=== PATIENT | male | born 1965 | race Caucasian/White ===

== ENCOUNTER 2022-12-25 15:07 | Emergency (ER) | payer OTHER ==
[2022-12-25] MEDS ORDERED: diphenhydrAMINE INJ 50 MG/ML VIAL IVP STA (16:17)
[2022-12-25] MEDS ORDERED: METOCLOPRAMIDE 10 MG/2 ML VIAL IVP STA (16:17)
[2022-12-25] MEDS ORDERED: KETOROLAC 15 MG/ML VIAL IVP STA (16:17)
[2022-12-25] MEDS ORDERED: SODIUM CHLORIDE 0.9% 1,000 ML IV STA (16:17)
--- NOTE | 2022-12-25 17:31 | CT Report ---
PROCEDURE: HEAD WO INDICATIONS: RIGHT-SIDE HEADACHE, NEW PATTERN TECHNIQUE: Noncontrast 4.5 mm thick angled axial sections acquired from the foramen magnum to the vertex. For r adiation dose reduction, the following was used: automated exposure control, adjustment of mA and/or kV according to patient size. COMPARISON: None. FINDINGS: Image quality: Excellent. CSF spaces: Basal cisterns are patent. No extra-axial fluid collections. Ventricles are normal in size and shape. Brain: No midline shift. No intracranial masses or hemorrhage. Roper-white matter interface is norm al. Bilateral basal ganglial calcifications. Skull and face: Calvarium and visualized facial bones are intact, without suspicious lesions. Sinuses: Complete opacification of the left maxillary sinus. The other visualized sinuses and mastoid s are clear. IMPRESSION: No acute intracranial pathology. Left maxillary sinus disease. Reviewed by: Ronnie Marshall MD on 12/25/2022 5:30 PM PDT Approved by: Ronnie Marshall MD on 12/25/2022 5:30 PM PDT Station ID: [id number]
[2022-12-25 17:33] VITALS: O2SAT 100
--- NOTE | 2022-12-25 17:44 | ED Physician Documentation ---
PD HPI HEADACHE - Stated complaint Stated Complaint: SAMSON,NAUSEA - Chief complaint Chief Complaint: Neuro - History obtained from History obtained from: Patient - Additional information Additional information: 57-year-old male with no significant past medical history presents by private vehicle from home for 3 days of right-sided parietal stabbing headache. Patient noticed the pain when he woke up from sleep. He has never had a headache like this before. No medications taken until today, he took an Excedrin several hours prior to arrival, it did not improve his pain. He states that when he was picking up the Excedrin the pharmacist told him that his headache could be a sign of an impending stroke and he should be evaluated in the emergency department. Patient denies vision changes, neck stiffness, chest pain, numbness, weakness, tingling, any other complaints at this time. Also endorsing mild nausea from the pain in his head. Review of Systems Constitutional: denies: Fever, Chills GI: reports: Nausea. denies: Abdominal Pain, Vomiting : denies: Dysuria, Frequency, Hesitancy Musculoskeletal: denies: Neck pain, Back pain, Extremity pain Neurologic: reports: Headache. denies: Generalized weakness, Focal weakness, Numbness PD PAST MEDICAL HISTORY - Past Medical History Past Medical History: Yes Neuro: Head injury, Headaches - Past Surgical History Past Surgical History: No - Present Medications Home Medications: Ambulatory Orders Medication Instructions Recorded Confirmed No Known Home Medications 12/25/22 12/25/22 - Allergies Allergies/Adverse Reactions: Allergies Allergy/AdvReac Type Severity Reaction Status Date / Time No Known Drug Allergies Allergy Verified 12/25/22 15:27 - Social History Does the pt smoke?: No Smoking Status: Never smoker Does the pt drink ETOH?: No Does the pt have substance abuse?: Yes - Immunizations Immunizations are current?: Yes - POLST Patient has POLST: No PD ED PE NORMAL - Vitals Vital signs reviewed: Yes - General General: Alert and oriented X 3, No acute distress, Well developed/nourished - HEENT HEENT: Atraumatic - Neck Neck: Supple, no meningeal sign - Cardiac Cardiac: RRR, Strong equal pulses - Respiratory Respiratory: No respiratory distress, Clear bilaterally - Abdomen Abdomen: Soft, Non tender, Non distended - Derm Derm: Normal color, Warm and dry, No rash - Extremities Extremities: No deformity, No tenderness to palpate, Normal ROM s pain - Neuro Neuro: Alert and oriented X 3, 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 No focal neurologic deficit. Patient only took 1 dose of Excedrin at home prior to arrival. Since this is a new pattern headache for the patient will order CT scan of the brain. Will order headache cocktail. CT scan shows no acute abnormalities. Headache cocktail has resolved patient's symptoms, he is resting comfortably in ED bed. Patient was advised to take Tylenol Motrin as needed at home for pain, encouraged to drink plenty of fluids. He was advised to follow-up with his primary care physician, especially if he starts noticing more frequent headaches. Departure - Departure Disposition: 01 Home, Self Care Clinical Impression: Headache Qualifiers: Headache type: unspecified Headache chronicity pattern: acute headache Intractability: not intractable Qualified Code(s): R51.9 - Headache, unspecified Condition: Stable Instructions: ED Headache Migraine Comments: Your CT scan today was normal. I recommend taking Tylenol and Motrin at home if you have recurrence of your headache. Follow-up with your primary care ph ysician. Forms: PCP List Discharge Date/Time: 12/25/22 17:53
[2022-12-25 17:51] VITALS: BP 137/81
== END 2022-12-25 17:53 | disposition home or self-care (01) ==
LOC: ED 15:07
DX: R51.9 Headache, unspecified (principal)
CPT/HCPCS: 70450; 96374; 96375; 99283; 99284; J1200; J2765

== ENCOUNTER 2023-03-02 14:25 | Emergency (ER) | payer OTHER ==
[2023-03-02] MEDS ORDERED: methocarbamoL 500 MG TABLET PO STA (16:22)
[2023-03-02] MEDS ORDERED: dexAMETHasone 4 MG TABLET PO STA (16:22)
[2023-03-02] MEDS ORDERED: KETOROLAC 30 MG/ML VIAL IM STA (16:22)
--- NOTE | 2023-03-02 16:33 | ED Physician Documentation ---
PD HPI BACK PAIN - Stated complaint Stated Complaint: L LEG PX - Chief complaint Chief Complaint: Back Pain - History obtained from History obtained from: Patient - History of Present Illness Timing - onset: How many days ago Timing - duration: Days Timing - details: Gradual onset, Still present Location: Lower, Right, Left Quality: Pain, Spasm, Aching, Similar to prior episodes Associated symptoms: No: Fever, Weakness, Numbness, Incontinent of urine Improves with: Rest Worsened by: Movement Contributing factors: Twisting. No: Trauma Review of Systems Constitutional: denies: Fever, Chills Skin: denies: Rash, Lesions Neurologic: denies: Focal weakness, Numbness PD PAST MEDICAL HISTORY - Past Medical History Past Medical History: Yes Cardiovascular: None Respiratory: Asthma, COPD Neuro: Head injury, Headaches Endocrine/Autoimmune: None GI: None : None HEENT: None Psych: None Musculoskeletal: Chronic back pain Derm: None - Past Surgical History Past Surgical History: Yes General: Appendectomy Ortho: Carpal Tunnel surgery, Other - Present Medications Home Medications: Ambulatory Orders Medication Instructions Recorded Confirmed HYDROcod/ACETAM 5/325 [[place] 5/325] 1 ea PO Q6H PRN #15 tablet 03/02/23 HYDROcodone/ACET 7.5/325 [[place] 1 each PO Q6H PRN #15 tablet 03/02/23 7.5/325] Meloxicam [Mobic] 7.5 mg PO BID 10 Days #30 tablet 03/02/23 dexAMETHasone [Decadron] 4 mg PO DAILY #5 tablet 03/02/23 methocarbamoL [Robaxin] 500 mg PO Q6H PRN #10 tablet 03/02/23 methocarbamoL [Robaxin] 500 mg PO Q6H PRN #30 tablet 03/02/23 - Allergies Allergies/Adverse Reactions: Allergies Allergy/AdvReac Type Severity Reaction Status Date / Time No Known Drug Allergies Allergy Verified 03/02/23 14:32 - Social History Does the pt smoke?: No Smoking Status: Former smoker Does the pt drink ETOH?: Yes Does the pt have substance abuse?: No - Immunizations Immunizations are current?: Yes - POLST Patient has POLST: No PD ED PE NORMAL - Vitals Vital signs reviewed: Yes - General General: Alert and oriented X 3, No acute distress (prefers standing. ), Well developed/nourished - Abdomen Abdomen: Soft, Non tender - Back Back: No CVA TTP - Derm Derm: Normal color, Warm and dry, No rash - Neuro Neuro: Alert and oriented X 3, No motor deficit, No sensory deficit, Normal speech Results - Vitals Vitals: Oxygen O2 Source Room air PD Medical Decision Making - ED course Complexity details: considered differential (has had back pain for awhile with flares at times. No red flags otherwise with currrent symptoms. Can give usual combination of anti-inflammatories, muscle relaxants, psain meds. ), d/w patient Departure - Departure Disposition: Home, Self Care Clinical Impression: Sciatica, Exacerbation of chronic back pain Condition: Stable Record reviewed to determine appropriate education?: Yes Instructions: ED Sciatica Follow-Up: [facility] [Provider Group] Prescriptions: dexAMETHasone [Decadron] 4 mg PO DAILY #5 tablet Meloxicam [Mobic] 7.5 mg PO BID 10 Days #30 tablet HYDROcod/ACETAM 5/325 [[place] 5/325] 1 ea PO Q6H PRN #15 tablet PRN Reason: Pain HYDROcodone/ACET 7.5/325 [[place] 7.5/325] 1 each PO Q6H PRN #15 tablet PRN Reason: Pain 5-7 methocarbamoL [Robaxin] 500 mg PO Q6H PRN #10 tablet PRN Reason: Spasms methocarbamoL [Robaxin] 500 mg PO Q6H PRN #30 tablet PRN Reason: Spasms Comments: In the short-term I would suggest using steroid and anti-inflammatories of dexamethasone daily for the next 5 days or so. Add methocarbamol muscle re laxant 3 times daily for stiffness and spasms. Heat and gentle stretching massage or chiropractic are all good. Add Tylenol 500 to 650 mg 4 times daily for pain if needed. You could add hydrocodone/acetaminophen if needed for worse pain. I sent these prescriptions to [facility] pharmacy in [place] so that they would be available for you this evening. They should be open till 6 PM today. Subsequently I would change to a nonsteroidal anti-inflammatory and still continue with muscle accident if needed. Still continue with Tylenol every 4-6 hours if needed for added pain. I sent prescriptions for these to [facility] in [place]. I am prescribing a short course of narcotic pain medication for you. These are potentially dangerous and addictive medications that should be used carefully. These medications may constipate you. Take an [id number] stool softener such as docusate twice daily with plenty of water while taking these medications. If you go 24 hours without a bowel movement, take [id number] MiraLAX, per package instructions. Do not drink or drive while taking these medications. If you received narcotic or sedating medications while in the emergency depar tment do not drive for 24 hours. Store this medication in a safe, secure place and out of reach of children. It is a violation of federal law to give or sell this medication to another person or to use in a manner other than prescribed. The ED will not refill narcotic prescriptions, including prescriptions lost or stolen. You can dispose of unwanted medications at the [facility]'s office or at several pharmacies such as [facility]. Discharge Date/Time: 03/02/23 16:51
[2023-03-02 16:47] VITALS: BP 154/9; O2SAT 97
== END 2023-03-02 16:51 | disposition home or self-care (01) ==
LOC: ED 14:25
DX: M54.42 Lumbago with sciatica, left side (principal); M54.41 Lumbago with sciatica, right side; G89.29 Other chronic pain; Z87.891 Personal history of nicotine dependence
CPT/HCPCS: 96374; 99283; 99284; A9270; J8540

== ENCOUNTER 2023-03-29 13:36 | Emergency (ER) | payer OTHER ==
--- NOTE | 2023-03-29 15:36 | ED Physician Documentation ---
History of Present Illness - Stated complaint Stated Complaint: PX RT SIDE - Chief complaint Chief Complaint: Back Pain - History obtained from History obtained from: Patient - Additonal information Additional information: The patient comes to the emergency department chief complaint of right side pain that started few days back. 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 He has had issues with his back before and was seen for sciatica a few weeks ago. He states that this pain, however, starts just inferior to the lower portion of the scapula on the right and wraps around to his flank. He denies any hematuria or dysuria. He states that he Has no history of kidney stones. No gallbladder issues that he knows of. He has not had a cough or fevers or any shortness of breath. States he is otherwise fairly healthy. 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 No other complaints at this time. PD PAST MEDICAL HISTORY - Past Medical History Cardiovascular: None Respiratory: Asthma, COPD Neuro: Head injury, Headaches Endocrine/Autoimmune: None GI: None : None HEENT: None Psych: None Musculoskeletal: Chronic back pain Derm: None - Past Surgical History Past Surgical History: No General: Appendectomy Ortho: Carpal Tunnel surgery, Other - Present Medications Home Medications: Ambulatory Orders Medication Instructions Recorded Confirmed HYDROcod/ACETAM 5/325 [[place] 5/325] 1 ea PO Q6H PRN #15 tablet 03/02/23 HYDROcodone/ACET 7.5/325 [[place] 1 each PO Q6H PRN #15 tablet 03/02/23 7.5/325] Meloxicam [Mobic] 7.5 mg PO BID 10 Days #30 tablet 03/02/23 dexAMETHasone [Decadron] 4 mg PO DAILY #5 tablet 03/02/23 methocarbamoL [Robaxin] 500 mg PO Q6H PRN #10 tablet 03/02/23 methocarbamoL [Robaxin] 500 mg PO Q6H PRN #30 tablet 03/02/23 Cyclobenzaprine [Flexeril] 10 mg PO TID PRN #20 tablet 03/29/23 HYDROcod/ACETAM 5/325 [[place] 5/325] 1 - 2 tablet PO Q6H PRN #14 tablet 03/29/23 predniSONE [Deltasone] 10 mg PO [id number] #42 tab 03/29/23 - Allergies Allergies/Adverse Reactions: Allergies Allergy/AdvReac Type Severity Reaction Status Date / Time No Known Drug Allergies Allergy Verified 03/29/23 13:51 - Social History Does the pt smoke?: No Smoking Status: Never smoker Does the pt drink ETOH?: No Does the pt have substance abuse?: Yes - Immunizations Immunizations are current?: Yes - POLST Patient has POLST: No PD ED PE NORMAL - Vitals Vital signs reviewed: Yes - General General: Alert and oriented X 3, No acute distress, Well developed/nourished - HEENT HEENT: Atraumatic, PERRL, EOMI, Moist mucous membranes - Neck Neck: Supple, no meningeal sign - Cardiac Cardiac: RRR, No murmur, Strong equal pulses - Respiratory Respiratory: No respiratory distress, Clear bilaterally - Abdomen Abdomen: Soft, Non tender, Non distended - Back Back: No spinal TTP, Other (Mild right CVA tenderness.) - Derm Derm: Normal color, Warm and dry, No rash - Extremities Extremities: No deformity, No edema - Neuro Neuro: Alert and oriented X 3 - Psych Psych: Normal mood, Normal affect Results - Vitals Vitals: Oxygen O2 Source Room air - Labs Labs: Laboratory Tests 03/29/23 03/29/23 03/29/23 15:34 15:34 16:30 WBC 8.8 RBC 5.21 Hgb 15.9 Hct 45.5 MCV 87.3 MCH 30.5 MCHC 34.9 RDW 11.9 L Plt Count 257 MPV 9.2 Neut # (Auto) 5.2 Lymph # (Auto) 2.7 Harmon # (Auto) 0.6 Eos # (Auto) 0.2 Baso # (Auto) 0.1 Absolute Nucleated RBC 0.00 Nucleated RBC % 0.0 Sodium 138 Potassium 4.1 Chloride 106 Carbon Dioxide 25 Anion Gap 7.0 BUN 13 Creatinine 0.9 Estimated GFR (MDRD) 87 L Glucose 90 Calcium 9.9 Total Bilirubin 0.9 AST 41 ALT 90 H Alkaline Phosphatase 82 Total Protein 7.2 Albumin 4.5 Globulin 2.7 Albumin/Globulin Ratio 1.7 Lipase 23 Urine Color YELLOW Urine Clarity CLEAR Urine pH 7.0 Ur Specific [place] 1.010 Urine Protein NEGATIVE Urine Glucose (UA) NEGATIVE Urine Ketones NEGATIVE Urine Occult Blood NEGATIVE Urine Nitrite NEGATIVE Urine Bilirubin NEGATIVE Urine Urobilinogen 0.2 (NORMAL) Ur Leukocyte Esterase NEGATIVE Ur Microscopic Review NOT INDICATED Urine Culture Comments NOT INDICATED - Rads (name of study) CT abd/pelvis Relevant Findings:: Final report received, See rad report (neg) PD Medical Decision Making - ED course Complexity details: reviewed results, re-evaluated patient, considered differential, d/w patient ED course: The patient declined symptomatic treatment in the emergency department. He was worked up with labs, urinalysis, and CT scan of the abdomen and pelvis without contrast. Labs and UA negative, and CT did not show any significant findings. I have filled out the pt's L&I paperwork, and given the pt a couple of days off. He has been advised that he will need to work with an L&I provider if he needs more than this. We have discussed the usual indications for return. Departure - Departure Disposition: 01 Home, Self Care Clinical Impression: Back pain Condition: Stable Instructions: ED Neck Back Pain General Prescriptions: predniSONE [Deltasone] 10 mg PO [id number] #42 tab Cyclobenzaprine [Flexeril] 10 mg PO TID PRN #20 tablet PRN Reason: Spasms HYDROcod/ACETAM 5/325 [[place] 5/325] 1 - 2 tablet PO Q6H PRN #14 tablet PRN Reason: Pain Comments: Your labs and CT scan look good. Most likely, your pain is due to the musculoskeletal structures of your right back. 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 For now, we will treat you symptomatically with medication for pain, inflammation, and muscle relaxation. Prescriptions for this have been electronically transmitted to the [facility] pharmacy in [place]. You should plan to follow-up with your primary doctor for further evaluation if your symptoms continue for more than the next couple of weeks. Please call to make an appointment now so that you will be able to be seen when you need to. Discharge Date/Time: 03/29/23 17:35
[2023-03-29 15:40] LABS: BASOPHILS # (AUTO) 0.1 10^3/uL (0.0-0.1); BASOPHILS % (AUTO) 0.7 %; EOSINOPHILS # (AUTO) 0.2 10^3/uL (0.0-0.7); EOSINOPHILS % (AUTO) 1.7 %; HCT - HEMATOCRIT 45.5 % (42.0-52.0); HGB - HEMOGLOBIN 15.9 g/dL (14.0-18.0); LYMPHOCYTES # (AUTO) 2.7 10^3/uL (1.5-3.5); LYMPHOCYTES % (AUTO) 30.9 %; MEAN CORPUSCULAR HEMOGLOBIN 30.5 pg (27.0-31.0); MEAN CORPUSCULAR HGB CONC 34.9 g/dL (32.0-36.0); MEAN CORPUSCULAR VOLUME 87.3 fL (80.0-94.0); MEAN PLATELET VOLUME 9.2 fL (7.4-11.4); MONOCYTES # (AUTO) 0.6 10^3/uL (0.0-1.0); MONOCYTES % (AUTO) 7.2 %; NEUTROPHILS # (AUTO) 5.2 10^3/uL (1.5-6.6); NEUTROPHILS % (AUTO) 59.2 %; PLT - PLATELET COUNT 257 10^3/uL (130-450); RED BLOOD COUNT 5.21 10^6/uL (4.70-6.10); RED CELL DISTRIBUTION WIDTH 11.9 % (12.0-15.0); WHITE BLOOD COUNT 8.8 x10^3/uL (4.8-10.8)
[2023-03-29 15:56] LABS: ALBUMIN 4.5 g/dL (3.2-5.5); ALBUMIN/GLOBULIN RATIO 1.7 (1.0-2.2); BILIRUBIN,TOTAL 0.9 mg/dL (0.2-1.0); CALCIUM 9.9 mg/dL (8.5-10.3); CREATININE 0.9 mg/dL (0.6-1.3); POTASSIUM 4.1 mmol/L (3.5-4.5); TOTAL PROTEIN 7.2 g/dL (6.4-8.9)
--- NOTE | 2023-03-29 16:34 | CT Report ---
PROCEDURE: Abdomen/Pelvis WO INDICATIONS: R flank pain TECHNIQUE: A CT scan of the abdomen and pelvis was performed without the use of intravenous contrast. Images we re recorded and evaluated at appropriate window settings. Reformats: coronal and sagittal. For radiat ion dose reduction, the following was used: automated exposure control, adjustment of mA and/or kV ac cording to patient size. COMPARISON: None. FINDINGS: Image quality: Excellent. Lung bases and heart: Unremarkable. Liver: No contour-deforming mass. Diffuse fatty liver infiltration can be seen. Gallbladder and biliary tree: Within normal limits. Spleen: No splenomegaly. Pancreas: No pancreatic ductal dilation. Adrenals: No adrenal nodule. Kidneys and ureters: No hydronephrosis. No renal cystic lesion which requires follow up. No solid mas s. Bowel and peritoneum: No bowel distension. No pathologic free fluid. Lymph nodes: No central or retroperitoneal adenopathy. Vessels: No infrarenal aortic aneurysm. PELVIS Reproductive organs: Unremarkable. Bladder: No wall thickness, accounting for underdistention. Pelvic lymph nodes: No pelvic adenopathy by size criteria. Bones: There is a chronic compression deformity of L2, with associated patella aracely remodeling change Other: No significant ventral or inguinal hernia. IMPRESSION: No hydronephrosis or obstructing renal stone. Additional findings: Fatty liver infiltration Remote L2 fracture Focal L1-L2 degenerative change Reviewed by: Bryson Bales MD on 03/29/2023 3:[address] [facility] Approved by: Bryson Bales MD on 03/29/2023 3:[address] [facility] Station ID: [id number]
[2023-03-29 16:40] LABS: BILIRUBIN,URINE NEGATIVE (NEGATIVE); GLUCOSE, URINE (UA) NEGATIVE (NEGATIVE); KETONES,URINE (UA) NEGATIVE (NEGATIVE); LEUKOCYTE ESTERASE, URINE NEGATIVE (NEGATIVE); NITRITE,URINE NEGATIVE (NEGATIVE); OCCULT BLOOD,URINE NEGATIVE (NEGATIVE); PROTEIN,URINE NEGATIVE (NEGATIVE); UROBILINOGEN,URINE 0.2 (NORMAL) E.U./dL (NORMAL)
[2023-03-29 16:41] LABS: CLARITY,URINE CLEAR (CLEAR)
[2023-03-29 17:45] VITALS: BP 138/88; O2SAT 98
== END 2023-03-29 17:35 | disposition home or self-care (01) ==
LOC: ED 13:36
DX: M54.50 Low back pain, unspecified (principal)
CPT/HCPCS: 1040M; 36415; 74176; 80053; 81003; 83690; 85025; 99283; 99284; 81001; 87086

== ENCOUNTER 2023-10-12 10:40 | Emergency (ER) | payer OTHER ==
--- NOTE | 2023-10-12 11:49 | XRAY Report ---
PROCEDURE: Chest 1V INDICATIONS: Short of breath TECHNIQUE: One view of the chest was acquired. COMPARISON: None. FINDINGS: Surgical changes and devices: None. Lungs and pleura: No pleural effusions or pneumothorax. Lungs are clear. Mediastinum: Mediastinal contours appear normal. Heart size is normal. Bones and chest wall: No suspicious bony lesions. Age-appropriate degenerative changes are seen. O verlying soft tissues appear unremarkable. IMPRESSION: No acute cardiopulmonary process. Reviewed by: Bryson Bales MD on 10/12/2023 10:47 AM [facility] Approved by: Bryson Bales MD on 10/12/2023 10:47 AM [facility] Station ID: [id number]
[2023-10-12] MEDS: DOXYCYCLINE 100 MG TABLET PO STA (13:02)
[2023-10-12] MEDS: predniSONE 20 MG TABLET PO STA (13:02)
--- NOTE | 2023-10-12 13:09 | ED Physician Documentation ---
History of Present Illness - Stated complaint Stated Complaint: SOA,COUGH - Chief complaint Chief Complaint: Resp - Additonal information Additional information: 57-year-old male with history of COPD, asthma, chronic headaches presents to the emergency department for worsening and persistent cough. Patient says that this started about 3 weeks ago when he had a medication change. His primary care provider took him off his Symbicort which has worked quite well for him and started him on Wixela And this medication unfortunately has not helped patient's COPD symptoms. He says that he has been having a hard time catching his breath and increased wheezing persistent and worsening cough. He is not currently smoking he has not had any fevers or chills that he is aware of. He says that he is not able to cough anything up. PD PAST MEDICAL HISTORY - Past Medical History Cardiovascular: None Respiratory: Asthma, COPD Neuro: Head injury, Headaches Endocrine/Autoimmune: None GI: None : None HEENT: None Psych: None Musculoskeletal: Chronic back pain Derm: None - Past Surgical History Past Surgical History: No General: Appendectomy Ortho: Carpal Tunnel surgery, Other - Present Medications Home Medications: Ambulatory Orders Medication Instructions Recorded Confirmed HYDROcod/ACETAM 5/325 [[place] 5/325] 1 ea PO Q6H PRN #15 tablet 03/02/23 HYDROcodone/ACET 7.5/325 [[place] 1 each PO Q6H PRN #15 tablet 03/02/23 7.5/325] Meloxicam [Mobic] 7.5 mg PO BID 10 Days #30 tablet 03/02/23 dexAMETHasone [Decadron] 4 mg PO DAILY #5 tablet 03/02/23 methocarbamoL [Robaxin] 500 mg PO Q6H PRN #10 tablet 03/02/23 methocarbamoL [Robaxin] 500 mg PO Q6H PRN #30 tablet 03/02/23 Cyclobenzaprine [Flexeril] 10 mg PO TID PRN #20 tablet 03/29/23 HYDROcod/ACETAM 5/325 [[place] 5/325] 1 - 2 tablet PO Q6H PRN #14 tablet 03/29/23 predniSONE [Deltasone] 10 mg PO [id number] #42 tab 03/29/23 Albuterol Sulf [Ventolin Hfa 1 - 2 puffs INH Q4HR PRN #18 gm 10/12/23 Inhaler] Budesonide/Formoterol Fumarate 10.2 gm IH DAILY #1 gm 10/12/23 [Symbicort 160-4.5 Mcg Inhaler] Doxycycline [Vibramycin] 100 mg PO BID 5 Days #9 tablet 10/12/23 predniSONE [Deltasone] 40 mg PO DAILY 4 Days #8 tablet 10/12/23 - Allergies Allergies/Adverse Reactions: Allergies Allergy/AdvReac Type Severity Reaction Status Date / Time No Known Drug Allergies Allergy Verified 10/12/23 11:11 - Social History Does the pt smoke?: No Smoking Status: Never smoker Does the pt drink ETOH?: No Does the pt have substance abuse?: Yes - Immunizations Immunizations are current?: Yes - POLST Patient has POLST: No PD ED PE NORMAL - Vitals Vital signs reviewed: Yes - General General: Alert and oriented X 3, No acute distress, Well developed/nourished - HEENT HEENT: Atraumatic, PERRL - Cardiac Cardiac: RRR - Respiratory Respiratory: No respiratory distress, Other (Bilateral upper and lower lobe rhonchi with mild wheezing) - Abdomen Abdomen: Normal bowel sounds - Extremities Extremities: No edema, No calf tenderness / cord Results - Vitals Vitals: Vital Signs - 24 hr 10/12/23 10/12/23 10/12/23 11:06 13:11 13:15 Temperature 36.4 C L 36.5 C Heart Rate 63 60 60 Respiratory 18 18 20 Rate Blood Pressure 139/75 H 130/70 O2 Saturation 97 98 Oxygen O2 Source Room air - Rads (name of study) Chest x-ray Relevant Findings:: Final report received, EMP independent interpretation of test (No acute cardiopulmonary abnormalities or findings.) PD Medical Decision Making - ED course ED course: 57-year-old male presents emergency department for concerns of COPD exacerbation. Lungs do sound wheezy and rhonchorous bilaterally. Patient says that he is able to attribute these worsening symptoms because of the recent change in his COPD medications from discontinuation of Symbicort and starting on wilexa. patient does not have an albuterol inhaler at home he was given 1 DuoNeb treatment here and started on doxycycline and prednisone and had significant improvement of symptoms and his lungs cleared up significantly after this treatment. He is safe for discharge, prescription of prednisone for the next 4 days as well as doxycycline and albuterol inhaler was sent to his preferred pharmacy and a refill of his Symbicort was also sent to his preferred pharmacy until he is able to get in with his primary care provider. He has no hypoxia I does not meet hospitalization criteria and is safe for discharge at this time. Return precautions given all questions answered Departure - Departure Disposition: 01 Home, Self Care Clinical Impression: COPD exacerbation Instructions: COPD Dc Prescriptions: Albuterol Sulf [Ventolin Hfa Inhaler] 1 - 2 puffs INH Q4HR PRN #18 gm PRN Reason: Shortness Of Air/Wheezing predniSONE [Deltasone] 40 mg PO DAILY 4 Days #8 tablet Budesonide/Formoterol Fumarate [Symbicort 160-4.5 Mcg Inhaler] 10.2 gm IH DAILY #1 gm Doxycycline [Vibramycin] 100 mg PO BID 5 Days #9 tablet Comments: Thank you for trusting us with your care. We have treated you for a COPD exacerbation with an antibiotic called doxycycline that you will take twice a day for the next 5 days you will take the second dose late this evening and then thereafter morning and evening for the next 4 days starting tomorrow. We have also given you 40 mg of steroids also known as prednisone you will take the next dose of this tomorrow morning for also a total of an additional 4 days. I also sent your prescription refill for your Symbicort and a prescription of albuterol inhaler you this is the medication that you attached the spacer to and you can take this as needed for wheezing and shortness of breath. Please follow-up with your new primary care provider soon as possible come back to the ER if you are having any worsening symptoms. Forms: PCP List Discharge Date/Time: 10/12/23 14:05
[2023-10-12] MEDS: IPRATROPIUM/ALBUTEROL 3 ML NEB INH STA (13:12)
[2023-10-12] MEDS: ACETAMINOPHEN 500 MG TABLET PO STA (13:30)
[2023-10-12 14:06] VITALS: BP 130/70; O2SAT 98
== END 2023-10-12 14:05 | disposition home or self-care (01) ==
LOC: ED 10:40
DX: J44.1 Chronic obstructive pulmonary disease with (acute) exacerbation (principal); Z79.899 Other long term (current) drug therapy; Z79.51 Long term (current) use of inhaled steroids
CPT/HCPCS: 71045; 94640; 94664; 99283; 99284; A9270; J7512